=== PATIENT | male | born 1965 | race Caucasian/White ===

== ENCOUNTER 2017-02-26 14:42 | Emergency (ER) | payer OTHER ==
[~2017-02-26] VITALS: Ht 172.7 cm; Wt 96.8 kg
[~2017-02-26 14:42] MED LIST: /ESOM40CA PO; ACET500C PO; FOLI1TAB86 PO; LISI2.5T PO; THIA50CA PO; VITMTA PO
[2017-02-26] MEDS ORDERED: ASPI81TA4 (14:53)
[2017-02-26] MEDS ORDERED: ESOM1CAP5 (14:53)
[2017-02-26] MEDS ORDERED: LISI-538 (14:53)
[2017-02-26] MEDS ORDERED: ALLE10TA2 (14:53)
[2017-02-26] MEDS ORDERED: FLUT1SPR2 (14:53)
[2017-02-26] MEDS ORDERED: SIMV10TA2 (14:53)
[2017-02-26] MEDS ORDERED: ADACEL/BOOSTRIX VACCINE (DIPHTH/PERTUSS/ACELL/TETANUS)0.5ML SYR (90715) IM ONE (15:30)
[2017-02-26 15:48] VITALS: BP 139/81
[2017-02-28] MEDS ORDERED: ZOFR4TAB3 PO ×2 (11:27→11:30)
== END 2017-02-26 15:58 | disposition home or self-care (01) ==
LOC: M ED 15:25
DX: S01.01XA Laceration without foreign body of scalp, initial encounter (principal); W22.09XA Striking against other stationary object, initial encounter; Y92.89 Other specified places as the place of occurrence of the external cause; Y93.89 Activity, other specified; Y99.0 Civilian activity done for income or pay

== ENCOUNTER 2017-02-27 12:51 | Emergency (ER) | payer OTHER ==
[~2017-02-27] VITALS: Ht 172.7 cm; Wt 96.2 kg
[~2017-02-27 12:51] MED LIST changes: +ALLE10TA2; +ASPI81TA4; +ESOM1CAP5; +FLUT1SPR2; +LISI-538; +SIMV10TA2
[2017-02-27 14:34] VITALS: BP 131/74
--- NOTE | 2017-02-27 15:04 | REP ---
HISTORY: Trauma. COMPARISON: None. TECHNIQUE: 4.5 mm contiguous transaxial sections were obtained from the skull base to the cerebral convexities with thin cuts through the posterior fossa with and without the administration of intravenous contrast. FINDINGS: The ventricles and sulci are consistent with the patient's age. There are no extra-axial fluid collections. There is no mass effect on the non-contrast scan and there are no enhancing mass lesions on the post contrast scan. The deep cerebral white matter is consistent with the patient's age. The orbital and petrous structures, cerebellopontine angles and posterior fossa are unremarkable. The sella turcica, cavernous and paracavernous structures are essentially unremarkable. The visualized portions of the paranasal sinuses and mastoid air cells are clear. IMPRESSION: Essentially unremarkable CT examination of the brain. Signed by Jorge Hines DO 02/27/2017 04:02 P
[2017-02-28] MEDS ORDERED: ZOFR4TAB3 PO ×2 (11:27→11:30)
== END 2017-02-27 14:46 | disposition home or self-care (01) ==
LOC: M ED 14:01
DX: S06.0X0D Concussion without loss of consciousness, subsequent encounter (principal); S00.93XD Contusion of unspecified part of head, subsequent encounter; W22.09XD Striking against other stationary object, subsequent encounter; Y92.89 Other specified places as the place of occurrence of the external cause; Y93.89 Activity, other specified; Y99.0 Civilian activity done for income or pay

== ENCOUNTER 2017-03-05 08:00 | Emergency (ER) | payer OTHER ==
[~2017-03-05] VITALS: Ht 172.7 cm; Wt 90.9 kg
[~2017-03-05 08:00] MED LIST changes: +ZOFR4TAB3 PO
[2017-03-05 08:03] VITALS: BP 135/74
[2017-03-05] MEDS ORDERED: ESOM1CAP5 PO (08:07)
== END 2017-03-05 08:42 | disposition home or self-care (01) ==
LOC: M ED 08:33
DX: Z48.02 Encounter for removal of sutures (principal)

== ENCOUNTER 2017-08-01 11:43 | Day surgery (SDC) | payer OTHER ==
[~2017-08-01] VITALS: Ht 172.7 cm; Wt 93.4 kg
[~2017-08-01 11:43] MED LIST changes: -ALLE10TA2; +ALLE10TA2 PO; +ASPI81TA18; -ASPI81TA4; +CYCL5TAB PO; +ESOM1CAP5 PO; +PROT1TAB2 PO
[2017-08-01] MEDS ORDERED: NS 1,000 ML IV ONE (12:15)
[2017-08-01] MEDS ORDERED: PROPOFOL 200 MG/20 ML VIAL As Ordered ONE (14:10)
[2017-08-01] MEDS ORDERED: LIDOCAINE 2% INJ 100 MG/5 ML SDV (FOR ANES.) As Ordered ONE (14:10)
--- NOTE | 2017-08-01 14:18 | ROOR ---
Patient Name: Ignacio Rogers Procedure Date: 08/01/2017 2:03 PM Date of : 1965 Age: 51 Room: [facility] Gender: Male Note Status: Finalized Procedure: Upper Endoscopy + Biopsies Indications: Heartburn, Failure to respond to medical treatment, Exclusion of Andre's esophagus Providers: Deshaun Almazan MD Referring MD: CHRISTIN WALLER MD Requesting Provider: Medicines: Monitored Anesthesia Care Complications: No immediate complications. Procedure: Pre-Anesthesia Assessment: - The heart rate, respiratory rate, oxygen saturations, blood pressure, adequacy of pulmonary ventilation, and response to care were monitored throughout the procedure. The Endoscope was introduced through the mouth, and advanced to the second part of duodenum. The upper GI endoscopy was accomplished without difficulty. The patient tolerated the procedure well. Findings: The Z-line was variable and was found 40 cm from the incisors. Multiple biopsies were obtained with cold forceps for evaluation to rule out Andre's Esophagus randomly at the gastroesophageal junction. A small hiatal hernia was present. No other significant abnormalities were identified in a careful examination of the stomach. The exam of the duodenum was otherwise normal. Impression: - Z-line variable, 40 cm from the incisors. - Small hiatal hernia. - Multiple biopsies were obtained at the gastroesophageal junction. - The examination was otherwise normal. Recommendation: - Patient has a contact number available for emergencies. The signs and symptoms of potential delayed complications were discussed with the patient. Return to normal activities tomorrow. Written discharge instructions were provided to the patient. - High fiber diet. - Discharge patient to home. - Continue present medications. - Await pathology results. - Telephone GI clinic for pathology results in 1 week. - Check Portal Online for Path Results.([email or web address] - Follow an antireflux regimen. - The findings and recommendations were discussed with the patient's family. Deshaun Almazan MD Deshaun Almazan MD 08/01/2017 2:18:37 PM This report has been signed electronically. Number of Addenda: 0 Note Initiated On: 08/01/2017 2:03 PM Estimated Blood Loss: Estimated blood loss: none.
[2017-08-01 14:40] VITALS: BP 131/75
== END 2017-08-01 14:50 | disposition home or self-care (01) ==
LOC: M OPP 11:43
PROVIDERS: ATTEND Internal Medicine Gastroenterology
DX: R12 Heartburn (principal); K22.8 Other specified diseases of esophagus; K44.9 Diaphragmatic hernia without obstruction or gangrene; I10 Essential (primary) hypertension; E78.5 Hyperlipidemia, unspecified; K21.9 Gastro-esophageal reflux disease without esophagitis; M54.5 Low back pain; Z87.820 Personal history of traumatic brain injury; Z80.3 Family history of malignant neoplasm of breast; Z80.42 Family history of malignant neoplasm of prostate; Z79.82 Long term (current) use of aspirin; Z79.899 Other long term (current) drug therapy; Z87.891 Personal history of nicotine dependence

== ENCOUNTER 2019-08-12 08:45 | Day surgery (SDC) | payer OTHER ==
[~2019-08-12] VITALS: Ht 172.7 cm; Wt 96.6 kg
[~2019-08-12 08:45] MED LIST changes: -/ESOM40CA PO; -ALLE10TA2 PO; -ASPI81TA18; +ASPI81TA52; +ASPI81TA85 PO; +FLUT15.820; -LISI-538; +LISI-538 PO; +LORA-753 PO; +NEXI1CAP3 PO; +NS 1,000 ML IV ONE; -SIMV10TA2; +SIMV10TA21 PO; +ULTR50TA8 PO; +ZOFR4TAB14 PO; -ZOFR4TAB3 PO
[2019-08-12] MEDS ORDERED: PROPOFOL 200 MG/20 ML VIAL As Ordered ONE (09:53)
[2019-08-12] MEDS ORDERED: LIDOCAINE 2% INJ 100 MG/5 ML SDV (FOR ANES.) As Ordered ONE (09:53)
--- NOTE | 2019-08-12 10:08 | ROOR ---
Patient Name: Ignacio Rogers Procedure Date: 08/12/2019 9:45 AM Date of : 1965 Age: 53 Room: [facility] Gender: Male Note Status: Finalized Procedure: Colonoscopy Indications: High risk colon cancer surveillance: Personal history of colonic polyps, Last colonoscopy: January 2015 Providers: Eh CROCKER MD Referring MD: CHRISTIN WALLER MD Requesting Provider: Medicines: Monitored Anesthesia Care Complications: No immediate complications. Procedure: Pre-Anesthesia Assessment: - The heart rate, respiratory rate, oxygen saturations, blood pressure, adequacy of pulmonary ventilation, and response to care were monitored throughout the procedure. The Colonoscope was introduced through the anus and advanced to the terminal ileum, with identification of the appendiceal orifice and IC valve. The colonoscopy was performed without difficulty. The patient tolerated the procedure well. The quality of the bowel preparation was good. Findings: The perianal and digital rectal examinations were normal. A diminutive polyp was found in the ascending colon. The polyp was sessile. The polyp was removed with a jumbo cold forceps. Resection and retrieval were complete. Mild sigmoid diverticulosis and moderate internal hemorrhoids. The exam was otherwise without abnormality on direct and retroflexion views. Impression: - One diminutive polyp in the ascending colon, removed with a jumbo cold forceps. Resected and retrieved. - Mild sigmoid diverticulosis and moderate internal hemorrhoids. - The examination was otherwise normal on direct and retroflexion views. Recommendation: - Repeat colonoscopy in 5 years for surveillance. hE Crocker MD Eh CROCKER MD 08/12/2019 10:08:13 AM Electronically signed by Eh CROCKER MD Number of Addenda: 0 Note Initiated On: 08/12/2019 9:45 AM Estimated Blood Loss: Estimated blood loss: none.
[2019-08-12 10:30] VITALS: BP 147/89
== END 2019-08-12 10:41 | disposition home or self-care (01) ==
LOC: M OPP 08:45
PROVIDERS: ATTEND Internal Medicine Gastroenterology
DX: Z86.010 Personal history of colon polyps (principal); D12.2 Benign neoplasm of ascending colon; K57.30 Diverticulosis of large intestine without perforation or abscess without bleeding; K64.8 Other hemorrhoids; I10 Essential (primary) hypertension; E78.00 Pure hypercholesterolemia, unspecified; R12 Heartburn; Z79.82 Long term (current) use of aspirin; Z79.899 Other long term (current) drug therapy; Z80.42 Family history of malignant neoplasm of prostate; Z80.3 Family history of malignant neoplasm of breast

== ENCOUNTER 2020-10-14 12:33 | Emergency (ER) | payer OTHER ==
[~2020-10-14] VITALS: Ht 172.7 cm; Wt 103.8 kg
[~2020-10-14 12:33] MED LIST changes: -ASPI81TA85 PO; +ASPI81TA86 PO; -LISI-538 PO; +LISI20TA33 PO; -NS 1,000 ML IV ONE
[2020-10-14 13:46] LABS: BASO % 0.4 % (0.0-1.0); EOS # 0.1 10^3/uL (0.0-0.5); EOS % 0.7 % (0.0-3.0); HEMATOCRIT 43.9 % (42.0-52.0); HEMOGLOBIN 15.4 g/dl (13.5-17.5); LYMPH # 2.1 10^3/uL (1.5-5.0); LYMPH % 22.6 % (24.0-44.0); MEAN CORPUSCULAR HEMOGLOBIN 32.2 pg (27.0-33.0); MEAN CORPUSCULAR HGB CONC 35.1 g/dl (32.0-36.5); MEAN CORPUSCULAR VOLUME 91.8 fl (80.0-96.0); MONO # 0.5 10^3/uL (0.0-0.8); MONO % 5.2 % (0.0-5.0); NEUTROPHILS # 6.4 10^3/uL (1.5-8.5); NEUTROPHILS % 70.9 % (36.0-66.0); PLATELET COUNT, AUTOMATED 282 10^3/uL (150-450); RED BLOOD COUNT 4.78 10^6/uL (4.30-6.10); WHITE BLOOD COUNT 9.1 10^3/uL (4.0-10.0)
[2020-10-14 13:54] LABS: INR 0.98; PROTHROMBIN TIME 13.2 SECONDS (12.5-14.3)
[2020-10-14] MEDS ORDERED: GI COCKTAIL 50ML BTL(HYOSCYAMINE/MAALOX/LIDOCAINE VISCOUS)(1:3:1) PO ONE (14:00)
[2020-10-14] MEDS ORDERED: PANTOPRAZOLE 40MG VIAL (C9113 PER 1) IV ONE (14:00)
--- NOTE | 2020-10-14 14:13 | REP ---
INDICATION: CHEST PAIN. COMPARISON: Comparison chest radiograph October 13, 2014. TECHNIQUE: Portable upright AP chest radiograph. FINDINGS: The lungs are well inflated and free of infiltrate. Pleural angles are sharp. Heart size is normal. Pulmonary vasculature is not increased. Monitoring electrodes are seen. IMPRESSION: No active disease. <Electronically signed by Iron Arguelles > 10/14/20 [id number]
[2020-10-14 14:17] LABS: ALBUMIN 4.3 GM/DL (3.2-5.2); ALT/SGPT 34 U/L (12-78); BILIRUBIN,DIRECT 0.1 MG/DL (0.0-0.2); BILIRUBIN,TOTAL 0.5 MG/DL (0.2-1.0); BLOOD UREA NITROGEN 16 MG/DL (7-18); CALCIUM LEVEL 9.7 MG/DL (8.5-10.1); CARBON DIOXIDE LEVEL 28 MEQ/L (21-32); CHLORIDE LEVEL 103 MEQ/L (98-107); CK-MB VALUE MASS 1.2 NG/ML (<3.6); CPK CREATINE PHOSPHOKINASE 114 U/L (39-308); CREATININE FOR GFR 1.08 MG/DL (0.70-1.30); GLOMERULAR FILTRATION RATE > 60.0 (>56); GLUCOSE, FASTING 121 MG/DL (70-100); LIPASE 94 U/L (73-393); MB/CK RELATIVE INDEX 1.05 (< OR =4); NT-PRO BNP 22 PG/ML (<125); SODIUM LEVEL 139 MEQ/L (136-145); TOTAL PROTEIN 7.4 GM/DL (6.4-8.2); TROPONIN I 0.02 NG/ML (< 0.10)
[2020-10-14 14:26] LABS: D-DIMER QUANT 404.1 ng/ml (<500)
[2020-10-14 14:53] VITALS: O2SAT 97
[2020-10-14 19:05] LABS: CK-MB VALUE MASS < 1.0 NG/ML (<3.6); CPK CREATINE PHOSPHOKINASE 99 U/L (39-308); MB/CK RELATIVE INDEX 1.01 (< OR =4); TROPONIN I 0.02 NG/ML (< 0.10)
[2020-10-14 20:00] VITALS: BP 129/84
--- NOTE | 2020-10-14 21:02 | ECGEPIP ---
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
--- NOTE | 2020-10-14 21:09 | ECGEPIP ---
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
== END 2020-10-14 20:10 | disposition home or self-care (01) ==
LOC: M ED 12:33
DX: R06.02 Shortness of breath (principal); I10 Essential (primary) hypertension; E78.9 Disorder of lipoprotein metabolism, unspecified; K21.9 Gastro-esophageal reflux disease without esophagitis; Z79.899 Other long term (current) drug therapy; Z79.82 Long term (current) use of aspirin; Z87.891 Personal history of nicotine dependence
CPT/HCPCS: 71045; 80048; 80076; 82550; 82553; 83690; 83880; 84484; 85025; 85379; 85610; 87804; 93005; 93041; 94760; 96374; 99285; C9113; U0003

== ENCOUNTER 2024-04-24 08:32 | Day surgery (SDC) | payer OTHER ==
[~2024-04-24] VITALS: Ht 172.7 cm; Wt 96.6 kg
[~2024-04-24 08:32] MED LIST changes: +CELE100C PO; +ECOT81TA5 PO; +ESOM1CAP20; +ESOM1CAP20 PO; -ESOM1CAP5; -ESOM1CAP5 PO; +NEUR300C PO
[2024-04-24] MEDS: NS 1,000 ML IV ONE (09:25)
[2024-04-24] MEDS ORDERED: propofoL 200 MG/20 ML VIAL As Ordered ONE (09:44)
[2024-04-24 10:06] VITALS: TEMP 98.2
[2024-04-24 10:21] VITALS: BP 119/20; O2SAT 97
== END 2024-04-24 10:31 | disposition home or self-care (01) ==
LOC: M OPP 08:32
PROVIDERS: ATTEND Surgery
DX: Z12.11 Encounter for screening for malignant neoplasm of colon (principal); Z86.010 Personal history of colon polyps; D12.6 Benign neoplasm of colon, unspecified; K57.30 Diverticulosis of large intestine without perforation or abscess without bleeding; I10 Essential (primary) hypertension; Z87.891 Personal history of nicotine dependence; Z79.02 Long term (current) use of antithrombotics/antiplatelets; Z79.1 Long term (current) use of non-steroidal anti-inflammatories (NSAID); Z79.51 Long term (current) use of inhaled steroids; Z79.82 Long term (current) use of aspirin; Z79.891 Long term (current) use of opiate analgesic; Z79.899 Other long term (current) drug therapy